=== PATIENT | male | born 1950 | race Caucasian/White ===

== ENCOUNTER → 2016-03-11 | Outpatient (CLI) | payer MEDICARE, BC ==
[~2016-03-11] VITALS: Ht 177.8 cm; Wt 111.4 kg
[~2016-03-11] MED LIST: ALEVE 220MG220 MG PO; ASPIRIN E.C. 8181 MG PO; COZAAR100 MG PO; IBU800 M1 PO; MULTIPLE VITAMI1 CAP PO; NORCO 325 MG-7.1 TAB PO; TYLENOL 8 HR PO; VITAMIN B COMPL1 TA1 PO; VITAMIN C500 MG PO
[2016-03-11 15:30] VITALS: BP 144/76; PULSE 102
== END ==
LOC: COL.RAD 12:33
DX: J90 Pleural effusion, not elsewhere classified (principal); J98.11 Atelectasis; R06.09 Other forms of dyspnea; J94.2 Hemothorax; W55.19XA Other contact with horse, initial encounter
CPT/HCPCS: Q9967

== ENCOUNTER → 2020-09-25 | Outpatient (CLI) | payer MEDICARE, BC ==
[~2020-09-25] MED LIST changes: +EFFEXOR-XR150 MG PO; +GLUCOPHAGE500 MG/TAB PO; +MICARDIS80 MG PO
--- NOTE | 2020-09-25 09:38 | NUR ---
pt was cancelled due to drinking caffeine. dr simpson was notified anushka
== END ==
LOC: COL.CARD 04:52
DX: R06.00 Dyspnea, unspecified (principal); Z53.8 Procedure and treatment not carried out for other reasons

== ENCOUNTER → 2020-09-28 | Outpatient (CLI) | payer MEDICARE, BC | LOC: COL.VAS 11:33 | DX: I51.7 Cardiomegaly (principal); I35.8 Other nonrheumatic aortic valve disorders ==

== ENCOUNTER → 2020-10-03 | Outpatient (CLI) | payer MEDICARE, BC ==
[~2020-10-03] VITALS: Ht 177.8 cm; Wt 112.3 kg
[2020-10-03 06:43] VITALS: BP 156/84; PULSE 69
[2020-10-03 07:58] VITALS: BP 161/80; PULSE 75
[2020-10-03 07:59] VITALS: BP 164/76; PULSE 90
[2020-10-03 08:00] VITALS: BP 148/78; PULSE 86
[2020-10-03 08:01] VITALS: BP 150/83; PULSE 86
== END ==
LOC: COL.CARD 06:21
DX: R06.00 Dyspnea, unspecified (principal)
CPT/HCPCS: A9500; J2785

== ENCOUNTER 2021-05-29 16:31 | Inpatient (IN) | payer MEDICARE, BC ==
[~2021-05-29] VITALS: Ht 177.8 cm; Wt 95.7 kg
[2021-05-29 17:20] LABS: ALANINE AMINOTRANSFERASE 9 U/L (0-55); ALBUMIN 3.1 gm/dL (3.4-4.8); ALKALINE PHOSPHATASE 98 U/L (40-150); ANION GAP 13 mmol/L (7-16); AST,SGOT 8 U/L (5-34); BILIRUBIN,TOTAL 0.6 mg/dL (0.2-1.2); BLOOD UREA NITROGEN 12 mg/dL (8-26); CALCIUM 8.1 mg/dL (8.4-10.2); CARBON DIOXIDE 17 mmol/L (23-31); CHLORIDE 104 mmol/L (98-107); CREATINE KINASE 340 U/L (30-200); CREATININE, serum 0.86 mg/dL (0.72-1.25); GLUCOSE 233 mg/dL (70-99); MAGNESIUM 1.7 mg/dL (1.6-2.6); PHOSPHOROUS 4.1 mg/dL (2.3-4.7); POTASSIUM 4.5 mmol/L (3.5-4.5); SODIUM 134 mmol/L (136-145)
[2021-05-29 17:27] LABS: TROPONIN-I < 0.010 ng/mL (0.00-0.033)
[2021-05-29 18:49] LABS: COLLECTION METHOD CLEAN CATCH
[2021-05-29 18:50] LABS: MEAN CELL VOLUME 89 fl (80.0-100.0); MEAN CORPUSCULAR HGB CONC 35 g/dl (33.0-37.0); MEAN PLATELET VOLUME 13.2 fl (7.4-10.4); RED BLOOD COUNT 2.52 M/mm3 (4.20-5.60); REDCELL DISTRIBUTION WIDTH-CV 13.8 % (11.5-14.5)
[2021-05-29 18:54] LABS: HEMATOCRIT 22.3 % (42.0-52.0); HEMOGLOBIN 7.9 g/dl (13.5-18.0); MEAN CORPUSCULAR HEMOGLOBIN 31 pg (27-31); PLATELET COUNT 17 K/mm3 (130-400)
[2021-05-29 18:55] LABS: MUCOUS Present (NOT PRESENT); PH 5 (5-8); SQUAMOUS EPITHELIAL None Seen /hpf (0-10); URINE APPEARANCE Clear (CLEAR/HAZY); URINE BACTERIA None Seen /hpf (NONE SEEN); URINE BILIRUBIN Negative (NEGATIVE); URINE BLOOD Negative (NEGATIVE); URINE COLOR Straw (YELLOW); URINE GLUCOSE 1+ (NEGATIVE); URINE KETONE Negative (NEGATIVE); URINE LEUKOCYTE ESTERASE Negative (NEGATIVE); URINE NITRATE Negative (NEGATIVE); URINE PROTEIN(semi-quant) Negative (NEGATIVE); URINE RBC None Seen /hpf (0-2); URINE UROBILINOGEN Negative (NEGATIVE)
[2021-05-29 20:39] LABS: BAND 14 % (0-10); EOSINOPHIL 8 % (0-4); LYMPHOCYTE 52 % (20.0-51.0); NEUTROPHILS 22 % (42.0-75.2); OVALOCYTES 1+; PLATELET ESTIMATE DECREASED (NORMAL)
[2021-05-29 22:27] VITALS: BP 136/80; PULSE 117; TEMP 98.1
--- NOTE | 2021-05-29 23:04 | NUR ---
Pt transferrred up from ED at 2200. Pt had incontinent void in bed. Alert and oriented x4. Reports right shoulder pain. Pt is a poor historian, cannot report what medications he takes at home or when he last had chemo. States his DPOA is his niece Bren. Scattered bruising noted down the left arm. Medium sized purple and black bruise on left chest. Red abraison noted on left lower abdomen. Pt's HR remains tachycardic and he appears sob at rest. HR currently running in the upper 120's. On room air satting in the upper 90's. BP 136/80. FSBS 154. Pt states he lives at home alone and has had multiple recent falls. States he uses no assistive devices at home. Vancomycin IV started. IV noted in RAC. Oriented pt to room. Bed alarm on and bed low and locked. Reminded Pt to call before getting OOB. Pt reports no concerns at this time. Will continue to monitor.
[2021-05-29] MEDS ORDERED: GLUCOTROL 5M5 MG/TAB PO (23:21)
[2021-05-29] MEDS ORDERED: K-TAB20 PO (23:21)
[2021-05-29] MEDS ORDERED: FLOMAX 0.40.4 MG/CAP PO (23:21)
[2021-05-29] MEDS ORDERED: KEPPRA 500MG500 MG PO (23:21)
[2021-05-29 23:51] VITALS: BP 121/65; PULSE 115; TEMP 99.4
[2021-05-30] VITALS (10 sets, daily range): BP systolic 112–135; BP diastolic 51–77; PULSE 94–119; TEMP 98.1–100.1
--- NOTE | 2021-05-30 01:26 | NUR ---
TX GIVEN VIA MASK, PT VERY SLEEPY DURING TX, TOLERATED WELL. PT STATES THAT HE HAS NOT USED A CPAP/BIPAP IN "MONTHS, WHENEVER THEY WERE RECALLED" WHEN ASKED HOW LONG IT'S BEEN SINCE HE USED ONE. PT IS A POOR HISTORIAN AND CAN NOT GIVE ANY HOME CPAP SETTINGS. CPAP/BIPAP ORDER DOES NOT INCLUDE SETTINGS AND NO HOME SETTINGS TO USE. PT SLEEPING WELL WHEN I ARRIVED AND SPO2 96% ON ROOM AIR. WILL CONTINUE TO MONITOR O2 SATS AND SUPPLY CPAP/BIPAP IF NEEDED.
--- NOTE | 2021-05-30 02:28 | NUR ---
Pt tolerating Plt transfusion well. SCD's applied to pt's legs. Noted more scattered bruising and small abraisans on BLE.
--- NOTE | 2021-05-30 05:00 | NUR ---
70 yo male with a recent diagnosis of possible primary brain cancer on oral chemotherapy is admitted for further care and management of possible sepsis in the setting of pancytopenia. ht 177.8 cm wt 100 kg SCr 0.86 with estimated CrCl >60 ml/min half life 13.1 hours Plan: Will give an initial loading dose of vancomycin 2000 mg x1 (20 mg/kg); followed by a maintenance regimen of vancomycin 1250 mg q12h to target a goal trough of 15-20 mcg/ml. Will follow patient's renal function, micro data, and vancomycin levels as indicated to assess for any necessary changes to regimen. Thank you for this dosing consult.
--- NOTE | 2021-05-30 05:01 | NUR ---
Pt had an uneventful night. Remains alert and oriented. Pt is slow to respond or slow to do movements. Takes him a minute to process a question. Has had 2 large incontinent voids. Reports he is "unable to tell" when he voids or has to void. SCD's remain on. Bed is low and in locked position with bed alarm on. Seizure, fall, and neutropenic precautions in place. Lactated ringers running at 100 ml/hr. Pt tolerating well. Asleep currently, denies pain. HR is still tachycardic, lower 100's now. Vital signs remain stable. Temperatures have remained stable. Temp was 100.1 at 0023, but has remained in the 98's since administering prn Tylenol. No new bruising noted. Will continue to monitor. No new concerns at this time.
--- NOTE | 2021-05-30 06:27 | NUR ---
Called to notify Dr. Kauffman of consult with patient. Dr. Kauffman did not answer. Left message and will notify day shift that the provider was notified.
--- NOTE | 2021-05-30 09:38 | NUR ---
Patient sees Dr. Xavier for oncology through [facility] in [place]. Left voicemail with Dr. Xavier's nurse Charito to verify chemotherapy. Primary nurse aware.
[2021-05-30 09:40] LABS: MEAN CELL VOLUME 89 fl (80.0-100.0); MEAN CORPUSCULAR HGB CONC 35 g/dl (33.0-37.0); MEAN PLATELET VOLUME 11.5 fl (7.4-10.4); RED BLOOD COUNT 2.39 M/mm3 (4.20-5.60); REDCELL DISTRIBUTION WIDTH-CV 14.3 % (11.5-14.5)
[2021-05-30 09:42] LABS: HEMATOCRIT 21.3 % (42.0-52.0); HEMOGLOBIN 7.4 g/dl (13.5-18.0); MEAN CORPUSCULAR HEMOGLOBIN 31 pg (27-31)
[2021-05-30 09:44] LABS: PLATELET COUNT 27 K/mm3 (130-400)
[2021-05-30 09:55] LABS: CALCIUM 8.2 mg/dL (8.4-10.2); CREATININE, serum 0.67 mg/dL (0.72-1.25)
--- NOTE | 2021-05-30 09:55 | NUR ---
Critical labs called to GISELE Cooper who read back the results.
[2021-05-30 10:01] LABS: BAND 16 % (0-10); EOSINOPHIL 2 % (0-4); LYMPHOCYTE 46 % (20.0-51.0); NEUTROPHILS 24 % (42.0-75.2); NUCLEATED RED BLOOD CELL 1 (0-6); PLATELET ESTIMATE DECREASED (NORMAL)
[2021-05-30 10:02] LABS: OVALOCYTES 1+
--- NOTE | 2021-05-30 10:03 | NUR ---
Shift assessment performed. Scheduled medicaitons given by a Student Nurse, under the supervision of a licensed professional. Generalized bruising noted. Abrasion noted on left knee and right hip. Patient alert to person and time, but not place. Right arm noted to be weak. Patient incontinent, jhonny care performed. Sacral region and groin intact. Patient states that he is experiencing aching shoulder pain and a headache rated a 5/10. VSS. Patient denies any other pain, discomfort, SOA, or further needs at this time. Call light in reach. Seizure percautions in place.
--- NOTE | 2021-05-30 10:57 | NUR ---
GUADALUPE and GUADALUPE student met with the patient to discuss discharge plan. The patient lives alone in [place]. He states that he has good neighbor support that checks in on him. His neighbor, Riky Underwood (ph#[phone]), frequently checks in on him and takes him to his doctor appointments. He reports independence with ADLs and has a cane and walker. He states that he has home health services from an agency called [facility], but that they do not do much for him. The patient's PCP is Dr. Eric Mehta and he receives his medications from [facility]. The patient does not have a DPOA-HC in EMR, but he states that he does have one completed and that he designated his niece, Bren Coronel. He states he is unsure where a copy of the form would be. He states that he is not , does not have any children, and his parents are . He states that he has one sibling: Haile Anderson that lives in [place]. He states that he does not keep in contact with him. Per the patient's H&P, the patient has been having multiple falls at home and his neighbor has been finding him down. GUADALUPE discussed post-acute rehab upon discharge. The patient is interested in rehab and to sending referrals to local SNFs. He states that he [facility] at [facility] [place] for a skilled stay and got out of there a few weeks ago. GUADALUPE attempted to contact JANUARY Andersoncrane chaser, at [facility] to inquire about the DPOA-HC and verify what home health agency he is using. GUADALUPE left her a voicemail. GUADALUPE attempted to contact the patient's niece, Bren, to review discharge plan and inquire about the DPOA-HC. The number we had on file was disconnected. GUADALUPE contacted the patient's neighbor, Riky, and he provided GUADALUPE with Bren's phone number [phone]. Riky confirmed that he has been finding the patient down a lot at home. He would like to keep updated on what facility the patient goes to. GUADALUPE contacted Bren to review the above. Bren is open to rehab for the patient. She states that she is unsure how many more skilled days the patient has left, due to already being in a facility. GUADALUPE inquired if the patient has applied for Medicaid. Bren states that the patient has not applied for Medicaid, due to not needing to and him owning cars and his home. She states that the patient has enough money to private pay at a facility for awhile, if his skilled days are out and to spin down his money. Bren states she is looking for her copy of the DPOA-HC. She states that they completed the form at [facility] and they may have a copy. GUADALUPE contacted [facility] Medical Records and requested a copy. The assistant import manager states that they do have one on file and will fax it to the medical unit. GUADALUPE to contact and fax referrals to [facility], [facility], [facility], [facility], and [facility]. Will await screens. *Discharge plan: SNF. Awaiting acceptance*
--- NOTE | 2021-05-30 11:16 | NUR ---
SW received the patient's DPOA-HC, via fax. SW placed the document in the patient's chart. The patient's DPOA-HC is his niece, Bren Coronel.
--- NOTE | 2021-05-30 13:55 | NUR ---
SW student sent a SNF referral to [facility], [facility], [facility], [facility], and [facility].
--- NOTE | 2021-05-30 14:38 | NUR ---
Sun, at [facility], reports that they have declined the patient.
[2021-05-30] MEDS ORDERED: VITAMIN D31000 IU PO (15:21)
[2021-05-30] MEDS ORDERED: MIRALAX PA17 GM/Dose PO (15:21)
[2021-05-30] MEDS ORDERED: NORCO 325 MG-51 TAB PO (15:22)
[2021-05-30] MEDS ORDERED: ANTI-DIARRHEAL2 MG PO (15:23)
[2021-05-30] MEDS ORDERED: ZOFRAN ODT4 MG PO (15:23)
[2021-05-30] MEDS ORDERED: TYLENOL 500MG500 MG PO (15:24)
--- NOTE | 2021-05-30 19:09 | NUR ---
Patient has had an ok day. New IV started in right hand. Fluids running as ordered. Patient up and to the chair with the assistance of PT. Has stated that he has a headache, but denies the need for interventions at this time. VSS. Patient A&O. Patient denies any further pain, discomfort, SOA, or further needs at this time. Call light in reach. Fall and Seizure percautions in place.
--- NOTE | 2021-05-30 21:44 | NUR ---
Pt alert and oriented upon entry. Resting quietly in bed. Dr. Kauffman came in and visited pt at bedside. Pt appears to be slow to responding. It takes the pt a minute to process a conversation and answer. Pt is also slow to move. Significant weakness noted in the left arm compared to the right arm. Pt can lift and hold right arm. Pt can lift the left arm slightly off the bed, but cannot hold it up for longer than a few seconds. BLE movement is also weak/slow but pt is able to lift and hold legs and stand. Pt denies any pain. Shift assessment performed. Abdomen soft, but pt is refusing to eat tonight. . Scattered bruising along the left arm and on BLE. 2 abraisons noted on left side. Medium to large abraisons noted under left axillae and on left lower abdomen. Axillae is covered with foam dressing and abdomen is open to air. Vitals signs stable. Pt HR continues to be NSR/Sinus tach. HR 97 currently. Pt appears less SOB at rest this evening. RR is 18. Breath sounds are clear with a small amount of expiratory wheezing noted. Pt satting in high 90's on room air. Urine output is good, though pt forgets to call out and attempts to get up. Educated pt and reminded him to utilize the call hays before getting OOB. Blood sugar was 117. Medications administered and education provided. Pt reports no concerns at this time. Will continue to monitor.
[2021-05-31 00:07] VITALS: BP 121/72; PULSE 105; TEMP 97.6
[2021-05-31 04:20] VITALS: BP 122/66; PULSE 99; TEMP 98.3
--- NOTE | 2021-05-31 04:33 | NUR ---
Pt had an uneventful night. Currently resting, asleep. Had 1 BM on BSC overnight and multiple incontinent voids in brief. Remains continent/incontinent and still continues to forget to call out when wanting to use bathroom. Educated pt on utilizing the call hays. LR continues at 100 ml/hr. Lungs sounds clear. No new LE edema noted. Medications administered overnight and education provided. Pt reports some shoulder discomfort. Repositioned pt to relieve pain. Vital signs stable. Pt has been afebrile overnight. Blood sugar at 2020 was 117. Pt reports no questions at this time. Will continue to monitor. No new concerns noted.
[2021-05-31 06:14] LABS: MEAN CELL VOLUME 89 fl (80.0-100.0); MEAN CORPUSCULAR HGB CONC 35 g/dl (33.0-37.0); MEAN PLATELET VOLUME 11.4 fl (7.4-10.4); RED BLOOD COUNT 2.29 M/mm3 (4.20-5.60); REDCELL DISTRIBUTION WIDTH-CV 14.4 % (11.5-14.5)
[2021-05-31 06:28] LABS: HEMATOCRIT 20.4 % (42.0-52.0); HEMOGLOBIN 7.2 g/dl (13.5-18.0); MEAN CORPUSCULAR HEMOGLOBIN 31 pg (27-31)
[2021-05-31 06:29] LABS: PLATELET COUNT 32 K/mm3 (130-400)
[2021-05-31 06:40] LABS: CALCIUM 8.1 mg/dL (8.4-10.2); CREATININE, serum 0.66 mg/dL (0.72-1.25); POTASSIUM 3.8 mmol/L (3.5-4.5)
[2021-05-31 07:10] LABS: BAND 18 % (0-10); EOSINOPHIL 1 % (0-4); LYMPHOCYTE 31 % (20.0-51.0); METAMYELOCYTE 1 % (0-0); NEUTROPHILS 33 % (42.0-75.2); PLATELET ESTIMATE DECREASED (NORMAL)
[2021-05-31 07:11] LABS: OVALOCYTES 1+
[2021-05-31 07:17] VITALS: BP 111/69; PULSE 103; TEMP 97.3
--- NOTE | 2021-05-31 07:20 | NUR ---
Critical labs called to GISELE Mcdaniel who read back the results.
[2021-05-31 11:12] VITALS: BP 105/58; PULSE 105; TEMP 98.1
--- NOTE | 2021-05-31 13:52 | NUR ---
Primary nurse was assisted with [id number] patient care with [facility] [employer] student Kim Guzman and [employer] instructor Saranya Galo MSN, RN.
--- NOTE | 2021-05-31 14:18 | NUR ---
GUADALUPE received a voicemail from the patient's niece, Bren, asking for SW to contact her. GUADALUPE contacted Bren. Bren states Huong at [facility] reached out to her. Bren states that Huong states that the patient does not have many or no skilled days left. She states that she is open to going to [facility] and he would be able to private pay, but she is hoping that a closer facility, like one in [place] can accept the patient instead. GUADALUPE faxed updates to [facility], [facility], [facility], and [facility] and inquired if they are able to accept. Jaxon, at [facility], states that the patient is on a chemo pill and Granix, which are very expensive. He is trying to figure out costs. Huong, at [facility], states that the patient does not have any or many skilled days left, so they then would be looking into long-term care. She states that they would be able to accept the patient though, but may not be able to take him until next Thursday. She provided that Bren had informed her that the patient has a prognosis of 14-18 months left. GUADALUPE notified the hospitalist and asked for a palliative care consult. SW to continue to follow. *Discharge plan: SNF or LTC. Awaiting to hear back from the local facilities*
[2021-05-31 15:14] VITALS: BP 147/71; PULSE 99; TEMP 98.5
[2021-05-31 19:17] VITALS: BP 104/49; PULSE 117; TEMP 97.6
[2021-06-01] VITALS (7 sets, daily range): BP systolic 112–136; BP diastolic 57–80; PULSE 53–110; TEMP 97.3–98.4
--- NOTE | 2021-06-01 01:25 | NUR ---
Pt alert and oriented this evening. Resting quietly in bed. Calm and cooperative. Denies acute pain. Shift assessment performed. Medications administered and education provided. Pt has had an incontinent void this evening. Appears to be continent during the day and incontinent at night. Bruising is still present on the left side. Bruising is on the left chest, left arm, and the pt came in with 2 abrasions on the left axillae and left lower abdomen. Continuing with antibiotics this evening and LR running at 100 ml/hr. Vital signs are stable. Afebrile. HR is in the 90's. No seizure-like activity has been noted. Pt is wearing SCD's. Bed is locked and in low position. Educated pt to utilize the call hays. Pt reports no questions. Will continue to monitor, no concerns at this time.
--- NOTE | 2021-06-01 05:55 | NUR ---
No adverse events overnight. Continued with Q4 neuro checks. Pt has slept all night, but is alert and oriented when awake. Continuing on LR, no new edema noted and lungs sound clear. Significant weakness noted in the left>right arm still. Continued on antibiotics overnight. Had multiple incontinent voids. Encouraged pt to turn throughout night. Pt reports no concerns at this time. Will continue to monitor.
--- NOTE | 2021-06-01 09:15 | NUR ---
PT ASLEEP UPON ENTRY, PLEASANT, AOX4, DENIES PAIN, IV SITE TO RH CDI, ASSESSMENT PERFORMED, PT EDUCATED ON MEDICATIONS, PT HAVING L SIDED WEAKNESS, NO OTHER NEEDS
--- NOTE | 2021-06-01 18:10 | NUR ---
UNEVENTFUL SHIFT, PT UP TO CHAIR FOR LUNCH, PT BACK IN BED AT THIS TIME, IV FLUIDS INFUSING, PT DENIES PAIN, L SIDE WEAK, NO OTHER NEED
[2021-06-02] VITALS (12 sets, daily range): BP systolic 106–136; BP diastolic 47–76; PULSE 57–108; TEMP 97.7–99
--- NOTE | 2021-06-02 05:07 | NUR ---
JANUARY JONES ABLE TO PLACE AN IV IN PATIENTS LEFT AC SO ANESTHESIA DID NOT HAVE TO BE CALLED IN. PATIENT CALM AND COOPERATIVE THROUGHOUT THE NIGHT. NO NEW ISSUES NOTED OR REPORTED BY PATIENT.
[2021-06-02 07:10] LABS: MEAN CELL VOLUME 92 fl (80.0-100.0); MEAN CORPUSCULAR HGB CONC 34 g/dl (33.0-37.0); MEAN PLATELET VOLUME 13.6 fl (7.4-10.4); RED BLOOD COUNT 2.11 M/mm3 (4.20-5.60); REDCELL DISTRIBUTION WIDTH-CV 14.3 % (11.5-14.5)
[2021-06-02 07:16] LABS: CALCIUM 7.9 mg/dL (8.4-10.2); CREATININE, serum 0.68 mg/dL (0.72-1.25); POTASSIUM 3.6 mmol/L (3.5-4.5)
[2021-06-02 07:22] LABS: HEMATOCRIT 19.5 % (42.0-52.0); HEMOGLOBIN 6.6 g/dl (13.5-18.0); MEAN CORPUSCULAR HEMOGLOBIN 31 pg (27-31)
[2021-06-02 07:23] LABS: PLATELET COUNT 25 K/mm3 (130-400)
--- NOTE | 2021-06-02 07:50 | NUR ---
PATIENT RESTING COMFORTABLY IN BED. NO C/O PAIN, NO REQUESTS AT THIS TIME.
--- NOTE | 2021-06-02 07:53 | NUR ---
CRITICAL HEMOGLOBIN AND PLATELET REPORTED TO DR. BERGERON. NEED FOR CENTRAL LINE ALSO EXPRESSED. NO NEW ORDERS AT THIS TIME
[2021-06-02 09:33] LABS: BAND 3 % (0-10); LYMPHOCYTE 35 % (20.0-51.0); NEUTROPHILS 56 % (42.0-75.2); PLATELET ESTIMATE DECREASED (NORMAL)
--- NOTE | 2021-06-02 11:07 | NUR ---
PATIENT UP WITH THERAPY FROM BED TO CHAIR. NEW IV PLACED IN RIGHT WRIST FOR BLOOD ADMINISTRATION. LUNG SOUNDS COARSE CRACKLES AND WHEEZES. EDEMATOUS B/L LE. HANDS AND LOWER UPPER EXTREMITIES +2 EDMEA. DIFFICULTY WITH MOVEMENT IN UPPER EXTREMITIES. PLEASANT, QUIET. NO COMPLAINTS OF PAIN. C/O OF SOB, RESPIRATIONS EVELVATED. AWAITING BLOOD BANK.
--- NOTE | 2021-06-02 12:59 | NUR ---
PATIENT LPRBC STARTED AT 1257, REVIEWED REACTION SYMPTOMS WITH PATIENT. CRACKLES PRESENT IN LUNGS ON MORNING ASSESSMENT, DIFFICULTY BREATHING NOTED BEFORE ADMISSION. SOB, ACCESSORY BREATHING ON OCCSION ALL PRE-BLOOD ADMISSION BASELINE. REMAINED AT PATIENT BEDSIDE FOR FIRST 20MIN.
--- NOTE | 2021-06-02 16:24 | NUR ---
PATIENT COMPLETED TRANSFUSION, WITH NO S/S OF REACTION. CRACKLES STILL NOTED IN B/L BASES. STILL C/O SOB. REPOSITIONED IN BED. A&O, NO C/O PAIN. SPOKE WITH PROVIDER REGUARDING LASIX FOR FLUID STATUS. WILL CONTINUE TO MONITOR.
--- NOTE | 2021-06-02 17:12 | NUR ---
PATIENT STABLE AFTER RECEIVING 1 UNIT OF LPRBC. 40MG PO LASIX STARTED AT 1615 TODAY FOR FLUID OVERLOAD. SITTING UP RIGHT IN BED EATING DINNER. NO COMPLAINTS OF PAIN. NO INSULIN COVERAGE NEEDED TODAY. SOME SLIGHT FORGETFULNESS NOTED TODAY. OTHERWISE NO SIGNIFICANT EVENTS THIS SHIFT.
[2021-06-03] VITALS (7 sets, daily range): BP systolic 100–147; BP diastolic 55–73; PULSE 91–104; TEMP 98.1–98.9
--- NOTE | 2021-06-03 04:49 | NUR ---
NO NEW ISSUES NOTED OR REPORTED BY PATIENT THROUGHOUT THE NIGHT. PATIENT RESTED QUIETLY IN BED THROUGHOUT MOST OF THE NIGHT. REPOSITIONED HIM SEVERAL TIMES.
[2021-06-03 06:33] LABS: MEAN CELL VOLUME 89 fl (80.0-100.0); MEAN CORPUSCULAR HGB CONC 34 g/dl (33.0-37.0); MEAN PLATELET VOLUME 12.7 fl (7.4-10.4); RED BLOOD COUNT 2.48 M/mm3 (4.20-5.60); REDCELL DISTRIBUTION WIDTH-CV 15.4 % (11.5-14.5)
[2021-06-03 06:44] LABS: HEMOGLOBIN 7.5 g/dl (13.5-18.0); MEAN CORPUSCULAR HEMOGLOBIN 30 pg (27-31)
[2021-06-03 06:45] LABS: PLATELET COUNT 24 K/mm3 (130-400)
[2021-06-03 06:46] LABS: CALCIUM 7.7 mg/dL (8.4-10.2); CREATININE, serum 0.67 mg/dL (0.72-1.25); POTASSIUM 3.3 mmol/L (3.5-4.5)
[2021-06-03 07:53] LABS: ANISOCYTOSIS 1+; BAND 12 % (0-10); BASOPHIL 1 % (0-2); EOSINOPHIL 2 % (0-4); LYMPHOCYTE 32 % (20.0-51.0); NUCLEATED RED BLOOD CELL 1 (0-6); PLATELET ESTIMATE DECREASED (NORMAL)
[2021-06-03 07:54] LABS: NEUTROPHILS 44 % (42.0-75.2)
[2021-06-03] MEDS ORDERED: KEPPRA 500MG500 MG PO (09:24)
[2021-06-03] MEDS ORDERED: TYLENOL 500MG500 MG PO (09:24)
[2021-06-03] MEDS ORDERED: FLOMAX 0.40.4 MG/CAP PO (09:24)
[2021-06-03] MEDS ORDERED: GLUCOTROL 5M5 MG/TAB PO (09:25)
[2021-06-03] MEDS ORDERED: VITAMIN D31000 IU PO (09:25)
--- NOTE | 2021-06-03 10:53 | NUR ---
GUADALUPE received a call from GUADALUPE Borja at [facility], regarding the patient. GUADALUPE asked if [facility] was able to take the patient this week, and Huong confirmed that they could take the patient on Thursday if needed. She voiced concern for Bren, his neice, who she had previously talked to in regards to the patient's placement. Bren had voiced that she would prefer the patient to be placed in [place], yet GUADALUPE has not had confirmation from [facility] or [facility]. Huong stated that the patient would have to pay privately for the care at [facility] because he is out of skilled days, but his neice, Bren, knows this and affirms he has the money to pay for this if needed. GUADALUPE Haider, will call Huong back this afternoon.
--- NOTE | 2021-06-03 15:05 | NUR ---
Social Work student faxed updates to [employer].
--- NOTE | 2021-06-03 16:41 | NUR ---
fiber optic assembly worker and SW student meet with patient to discuss his golas of care. When asked what his goals were, the patient replies " that i could go back in time and non of this would have happened". I empathized with the patient and asked if he would like to pursue aggressive measures towards his treatment or focus more on comfort the patient replied with that he would like to focus on "comfort". I addressed him being a full code status and what that would look like if his heart was to stop. Patient verbalizes that he would like chest compressions and to be intubated. Unsure if the patient fully understood. Patient appears to be fidgety and restless during interaction with excessive belly breathing. Per nursing he is taking in less orally and frequently chokes on liquids. Informed the patient that i would let him rest and think about it tonight and that we would touch base again tomorrow. BANDAR/Charley Moya contacted. She states that she is flying in tomorrow and should arrivein [place] around [id number]. Bren asks if the patient will be discharged by then. I informed her that at this time the only accepting facility that we have is [facility] and that they would not be able to take the patient until mid week. Informed Bren that i spoke with Noemí at [facility] who informed me that the patient is out of skilled days and that he would be private pay. Also informed her that the facilities in [facility] are not able to accept the patient unless he was on hospice. Bren verbalizes her understanding and at this time is leaning more towards hospice but would like to be here and speak with the patient about it in person.
--- NOTE | 2021-06-03 17:13 | NUR ---
PATIENT RESTING IN CHAIR, S/P EEG. NO C/O PAIN. EDEMA PRESENT IN B/L UPPER AND LOWER EXTREMITIES. BELLY BREATHING. C/O SHORTNESS OF BREATH. ALERT, ORIENTED. PLAN TO DISCHARGE TO SNF TODAY. RECOMMENDED TO SW TO CONSIDER CONSULT TO PALLIATIVE/HOSPICE. DISCUSSED WITH PATIENT REGUARDING CODE STATUS. ADAMANT ABOUT REMAINING FULL CODE. PATIENT HAD DIFFICULTY WITH SWALLOWING MORNING MEDS, HAD MOMENT OF CHOKING, SPEECH CONSULTED. RAYMUNDO EPISODE WHILE AUTHOR BEDSIDE, DURING SWAWLLOWING EPISODE. PATIENT RECOVERED QUICKLY. WILL CONTINUE TO MONITOR.
--- NOTE | 2021-06-03 18:32 | NUR ---
PATIENT RESTING IN BED. C/O DIFFICULTY BREATHING OCCASSIONALLY THROUGHOUT THE DAY. WORKED WITH THERAPY, EEG THIS AM. NO CRITICAL EVENTS TO REPORT. PLANS TO DC TO SNF THIS WEEK.
[2021-06-04 03:32] VITALS: BP 131/65; PULSE 95; TEMP 98.1
[2021-06-04 06:12] LABS: MEAN CELL VOLUME 87 fl (80.0-100.0); MEAN CORPUSCULAR HGB CONC 36 g/dl (33.0-37.0); MEAN PLATELET VOLUME 12.4 fl (7.4-10.4); REDCELL DISTRIBUTION WIDTH-CV 14.9 % (11.5-14.5)
[2021-06-04 06:13] LABS: HEMATOCRIT 22.6 % (42.0-52.0); HEMOGLOBIN 8.1 g/dl (13.5-18.0); MEAN CORPUSCULAR HEMOGLOBIN 31 pg (27-31)
[2021-06-04 06:15] LABS: PLATELET COUNT 24 K/mm3 (130-400)
[2021-06-04 06:27] LABS: CALCIUM 7.8 mg/dL (8.4-10.2); CREATININE, serum 0.64 mg/dL (0.72-1.25); POTASSIUM 3.4 mmol/L (3.5-4.5)
[2021-06-04 07:06] LABS: BAND 7 % (0-10); LYMPHOCYTE 27 % (20.0-51.0); METAMYELOCYTE 1 % (0-0); NEUTROPHILS 65 % (42.0-75.2)
[2021-06-04 07:07] LABS: HYPOCHROMIA 1+; OVALOCYTES 1+; SCHISTOCYTES 1+
[2021-06-04 07:08] LABS: POLYCHROMASIA 1+; TEAR DROP CELLS 1+
[2021-06-04 07:26] VITALS: BP 118/71; PULSE 89; TEMP 98.4
[2021-06-04 11:39] VITALS: BP 121/71; PULSE 94; TEMP 98.4
[2021-06-04 15:47] VITALS: BP 116/63; PULSE 91; TEMP 98.2
--- NOTE | 2021-06-04 17:15 | NUR ---
THIS RN HAD A CONVERSATION REGARDING PALLIATIVE/HOSPICE WITH THE PATIENT AND HIS DPOA: KERVIN. THE PATIENT WAS ASKING "WHAT WOULD YOU SUGGEST" AND "WHAT WOULD YOU DO?" THIS RN STATED "THAT IS COMPLETELY UP TO HIM WHAT HE WANTS TO DO." THE PATIENT DID STATE AT ONE POINT "I WANT TO KEEP GETTING MY MEDICATIONS AND LIVE LIFE LONG I CAN." THIS RN STATED "IT IS REALLY UP TO HIM ON HOW HE WANTS TO LIVE HIS LIFE. QUALITY VS. QUANTITY" THE NIECE STATES THAT SHE HAD BEEN GIVEN A PROGNOSIS FOR HIS DIAGNOSIS AND THAT HE DOES NOT RECALL THE CONVERSATION THAT WAS HAD REGUARDING THIS ISSUE. THE NEICE DID ALSO STATE THAT SHE WILL NOT MAKE DECISIONS BUT ASSIST HER UNCLE BY MAKING SUGGESTIONS. NO OTHER CONCERNS AT THIS TIME. REPORT GIVEN TO JANUARY SAMSON.
[2021-06-04 20:28] VITALS: BP 125/65; PULSE 95; TEMP 98.8
[2021-06-05] VITALS (7 sets, daily range): BP systolic 102–129; BP diastolic 50–92; PULSE 87–102; TEMP 97.4–99
--- NOTE | 2021-06-05 06:05 | NUR ---
UPON ASSESSMENT OF PATIENTS BACK EARLY THIS MORNING A RED RASH WAS NOTED ON THE RIGHT SIDE OF HIS BACK. GISELE SAINI NOTIFIED. SEE NEW ORDERS.
[2021-06-05 06:23] LABS: HEMATOCRIT 23.1 % (42.0-52.0); HEMOGLOBIN 8.1 g/dl (13.5-18.0); MEAN CELL VOLUME 87 fl (80.0-100.0); MEAN CORPUSCULAR HEMOGLOBIN 31 pg (27-31); MEAN CORPUSCULAR HGB CONC 35 g/dl (33.0-37.0); MEAN PLATELET VOLUME 11.3 fl (7.4-10.4); RED BLOOD COUNT 2.65 M/mm3 (4.20-5.60); REDCELL DISTRIBUTION WIDTH-CV 14.7 % (11.5-14.5)
[2021-06-05 06:25] LABS: PLATELET COUNT 25 K/mm3 (130-400)
[2021-06-05 06:49] LABS: CREATININE, serum 0.61 mg/dL (0.72-1.25); POTASSIUM 3.8 mmol/L (3.5-4.5)
[2021-06-05 07:18] LABS: BAND 3 % (0-10); EOSINOPHIL 6 % (0-4); LYMPHOCYTE 38 % (20.0-51.0); MICROCYTOSIS 2+; NEUTROPHILS 39 % (42.0-75.2); PLATELET ESTIMATE DECREASED (NORMAL); POLYCHROMASIA 1+
[2021-06-05 07:19] LABS: OVALOCYTES 1+; SCHISTOCYTES 1+
--- NOTE | 2021-06-05 07:34 | NUR ---
PT WOULD NOT TOLERATE THE EFFER-K FOR THE POTASSIUM PROTOCOL. INSTEAD ORDERED 20MEQ TABLET FOR PATIENT PREFERENCE.
--- NOTE | 2021-06-05 10:20 | NUR ---
Call made to [facility]. S/w Dr. Duc Mcneill's nurse. She confirmed patient was last seen in March and had completed his treatment with them but was under the assumption that he had transferred care to [facility]. There had been issues with patient's retirement getting the patient to appointments so the office was trying to coordinate transfer fo care to get better adherance to treatment plan. Patient also received radiation therapy from Dr. Magana. Transferred to Dr. Magana's nurse (#[phone]). S/w Kourtney, jerad confirmed the patient received radiation therapy 05/07 with his last appointment 05/13. Patient is scheduled for a f/u with Dr. Magana 06/14 to determine when re-imaging (MRI) is needed post-treatment.
--- NOTE | 2021-06-05 13:09 | NUR ---
progress worker attended meeting with palliative care RN Asmita, the patient's niece/ DPOA-HC Bren and the patient to discuss goals of care. Patient verbalizs that he would like to continue his cancer treaments. Educated the patient that he is not safe enough to return home. Patient is in agreement to this. Spoke with the patient about termite inspector care facilities and he is in agreement to this. He would like to look at [facility] first. I contacted Sun with [facility]. She does not have any AL, LTC or memory care beds available at this time. Contact made with Jaxon at [facility]. He "might" might have a bed for the patient. I asked Jaxon if he would be able to come up and meet with the patient and Bern today. Jaxon states that he will be here around 3 to meet with the patient and Bren. This SW contacted Karlie Macario in [place]. Bren states that she has financial DPOA paperwork needing to be notarized. Karlie is going to plan on meeting with Bren around 2 to finalize that paperwork.
--- NOTE | 2021-06-05 13:16 | NUR ---
Met with patient, his neice and DPOA Bren, and GUADALUPE Haider. Patient would like to pursue treatment for his cancer at this time. He understands that it is not recommended that he return home and he is agreeable to placement. GUADALUPE Haider making referrals. Bren pulled me aside and is under the assumption that the patient only has 12 months to live based on a conversation with the patient's surgeon but states she doesn't think Bill has heard a prognosis. I told here neither his oncologist or radiation oncologist would give me any prognosis or prospective treatment plan and things are still pending follow-up imaging. Gave Bren a list of hospice agencies to look into and informed her that they can be added at any time in addition to his nursing services that get set up. I also gave her my contact information should questions arise.
--- NOTE | 2021-06-05 19:00 | NUR ---
THE PATIENT HAD AN UNEVENTFUL SHIFT. ASSESSMENT UNCHANGED. THE PATIENT DENIES ANY PAIN ASIDE FROM A SLIGHT HEADACHE. THE PATIENT HAS BEEN DOING VERY WELL WITH EATING TODAY. DISCUSSED EATING WITH SPEECH THERAPY WHO STATES IF HE IS DOING WELL, WE NO LONGER NEED TO KEEP HIM UNDER 100% SUPERVISION WHILE EATING. THE PATIENT HAS DECIDED THAT HE WILL GO TO [facility], AND SOCIAL WORK IS WORKING WITH THE DPOA TO DECIDE WHERE. THERE ARE NO OTHER CONCERNS WITH THIS PATIENT. REPORT HANDED OFF TO JANUARY SAMSON.
--- NOTE | 2021-06-05 23:35 | NUR ---
Pt is alert and oriented this evening, resting in bed. Denies acute pain. Medications administered and education provided. Shift assessment performed. Q4 neuro checks continued. Bruising noted on pt's left axillary area and left lower side. Medium sized and yellow to black colored. 2 smaller abrasions also noted, one on the left axillae and one on the lower left abdomen. Both red, not draining, and open to air. Scattered bruising noted on arms and legs. Pt is alert and awoken to speech, but is a little slow to comprehend. The left and right upper extremities are weak. Left side has greater weakness than the right. Pt can move legs and scootch himself up in the bed as needed. Vital signs are stable. HR is in 80's and NSR. Most recent blood suagr was 150. No insulin required. BP runs in the lower 100-110's systolic, but pt denies lightheadedness or dizziness. Condom catheter noted. Pt appears to be incontinent at night. Calm and cooperative this evening. Encouraged pt to turn. Pt reports no questions at this time. Will continue to monitor, no concerns at this time.
[2021-06-06 04:31] VITALS: BP 77/50; PULSE 94; TEMP 98.3
[2021-06-06 04:53] VITALS: BP 118/76
--- NOTE | 2021-06-06 04:54 | NUR ---
Sat Pt upright and re-took BP manually on the right arm and got 118/76. Pt denies dizziness or lightheadedness and is not SOB. Will continue to monitor.
--- NOTE | 2021-06-06 04:57 | NUR ---
Pt had an uneventful night, no adverse events. Remains alert and oriented when awake. Has rested the majority of the night. Vital signs remain stable. Last BP was 118/76 which was taken manually. BP tends to run softer at night. HR runs from 90's-100's, sinus rythym and sinus tach. Lung sounds are clear. Pt denies acute pain. 300 ml out overnight. Pt reports no questions at this time. No new concerns, will continue to monitor.
[2021-06-06 06:41] LABS: POTASSIUM 3.6 mmol/L (3.5-4.5)
[2021-06-06 08:20] LABS: MEAN CELL VOLUME 90 fl (80.0-100.0); MEAN CORPUSCULAR HGB CONC 34 g/dl (33.0-37.0); MEAN PLATELET VOLUME 13.2 fl (7.4-10.4); RED BLOOD COUNT 2.58 M/mm3 (4.20-5.60); REDCELL DISTRIBUTION WIDTH-CV 14.7 % (11.5-14.5)
[2021-06-06 08:21] LABS: HEMATOCRIT 23.3 % (42.0-52.0); HEMOGLOBIN 7.9 g/dl (13.5-18.0); MEAN CORPUSCULAR HEMOGLOBIN 31 pg (27-31)
[2021-06-06 08:22] LABS: PLATELET COUNT 30 K/mm3 (130-400)
[2021-06-06 08:31] VITALS: BP 127/70; PULSE 76; TEMP 98.2
--- NOTE | 2021-06-06 08:40 | NUR ---
PT SLOW TO RESPOND TO QUESTIONS BUT AOX4, TERI JAQUEZ MADE AWARE, ROSS LIFT OPERATOR EQUAL, UNABLE TO HOLD UP L UPPER EXTREMITY. NO EDEMA NOTED TO BLE BUT EDEMA 1+ TO BUE. MEDICATIONS GIVEN, PT HOLDING WATER IN MOUTH FOR A FEW SECONDS BEFORE SWALLOWING. SOME COUGHING NOTED AFTER SWALLOWING. RASH VISUALIZED ON PT BACK, PT DENIES ITCHINESS. ASSESSMENT PERFORMED, NO OTHER NEEDS
[2021-06-06 08:44] LABS: CREATININE, serum 0.67 mg/dL (0.72-1.25)
[2021-06-06 09:05] LABS: BAND 2 % (0-10); EOSINOPHIL 3 % (0-4); LYMPHOCYTE 23 % (20.0-51.0); NEUTROPHILS 59 % (42.0-75.2); PLATELET ESTIMATE DECREASED (NORMAL)
[2021-06-06] MEDS ORDERED: ZYRTEC 10MG10 MG PO (09:07)
[2021-06-06 12:02] VITALS: BP 103/65; PULSE 88; TEMP 98.1
--- NOTE | 2021-06-06 13:13 | NUR ---
Spoke with Jaxon at [facility] who states they are prepared to accept the patient for an admission today. Patient's clinical updates and and discharge orders faxed to Jaxon. Arrangement made for the patient to be picked up at 1400 today. Patient's niece/DPOA-HC notified and is in agreement to this plan. Patient is presented with the [facility].IM form. Education provided and verbalized his agreement with today's discharge plan. Signed original placed in the patient's chart and copy provided back to the patient. Discharge plan: [facility] today @ 1400
--- NOTE | 2021-06-06 13:48 | NUR ---
attempted to leave report for via donavon magdiel. no answer, left message to call back.
--- NOTE | 2021-06-06 14:26 | NUR ---
REPORT CALLED TO VIA MERI JEREZ
--- NOTE | 2021-06-06 14:50 | NUR ---
PT ESCORTED OUT VIA WHEELCHAIR, NO BELONGINGS OTHER THAN CLOTHES BROUGHT TO HOSPITAL, PT NIECE AT BEDSIDE, NO OTHER NEEDS, PACKET PROVIDED TO VIA [employer]
== END 2021-06-06 14:52 | DRG 183 ==
LOC: COL.ER 16:31 → MEDICAL 20:03
PROVIDERS: Emergency Medicine; Nurse Practitioner Family; Physician Assistant; Student in an Organized Health Care Education/Training Program; ADMIT Internal Medicine
DX: S22.41XA Multiple fractures of ribs, right side, initial encounter for closed fracture (principal); D61.810 Antineoplastic chemotherapy induced pancytopenia; R65.10 Systemic inflammatory response syndrome (SIRS) of non-infectious origin without acute organ dysfunction; E87.1 Hypo-osmolality and hyponatremia; E87.2 Acidosis; C71.9 Malignant neoplasm of brain, unspecified; T45.1X5A Adverse effect of antineoplastic and immunosuppressive drugs, initial encounter; I10 Essential (primary) hypertension; G47.30 Sleep apnea, unspecified; E11.9 Type 2 diabetes mellitus without complications; G40.909 Epilepsy, unspecified, not intractable, without status epilepticus; R41.89 Other symptoms and signs involving cognitive functions and awareness; E66.9 Obesity, unspecified; N40.0 Benign prostatic hyperplasia without lower urinary tract symptoms; I44.1 Atrioventricular block, second degree; R13.10 Dysphagia, unspecified; E87.6 Hypokalemia; R21 Rash and other nonspecific skin eruption; W06.XXXA Fall from bed, initial encounter; Y93.89 Activity, other specified; Y92.003 Bedroom of unspecified non-institutional (private) residence as the place of occurrence of the external cause; Z20.822 Contact with and (suspected) exposure to COVID-19; Z68.30 Body mass index [BMI] 30.0-30.9, adult; Z87.891 Personal history of nicotine dependence; Z79.84 Long term (current) use of oral hypoglycemic drugs; Z79.82 Long term (current) use of aspirin
CPT/HCPCS: 99223-AI; 99232-AI; 99233-AI; 99239; A9284; J0692; J1447; J3370; J3475; J3480; J7050; J7120; P9035; P9040; Q9967

== ENCOUNTER → 2021-06-10 | Outpatient (CLI) | payer MEDICARE, BC ==
[~2021-06-10] MED LIST changes: +ANTI-DIARRHEAL2 MG PO; +FLOMAX 0.40.4 MG/CAP PO; +GLUCOTROL 5M5 MG/TAB PO; +K-TAB20 PO; +KEPPRA 500MG500 MG PO; +MIRALAX PA17 GM/Dose PO; +NORCO 325 MG-51 TAB PO; +TYLENOL 500MG500 MG PO; +VITAMIN D31000 IU PO; +ZOFRAN ODT4 MG PO; +ZYRTEC 10MG10 MG PO
[2021-06-10 14:37] LABS: COLLECTION METHOD CLEAN CATCH
[2021-06-10 14:42] LABS: MUCOUS Present (NOT PRESENT); PH 6 (5-8); SQUAMOUS EPITHELIAL 0-2 /hpf (0-10); URINE APPEARANCE Clear (CLEAR/HAZY); URINE BACTERIA None Seen /hpf (NONE SEEN); URINE BILIRUBIN Negative (NEGATIVE); URINE BLOOD Negative (NEGATIVE); URINE COLOR Yellow (YELLOW); URINE GLUCOSE Negative (NEGATIVE); URINE KETONE 1+ (NEGATIVE); URINE LEUKOCYTE ESTERASE Negative (NEGATIVE); URINE NITRATE Negative (NEGATIVE); URINE PROTEIN(semi-quant) Negative (NEGATIVE); URINE RBC 0-2 /hpf (0-2); URINE UROBILINOGEN >=4.0 (NEGATIVE)
[2021-06-10 14:44] LABS: HEMOGLOBIN 8.5 g/dl (13.5-18.0); MEAN CELL VOLUME 94 fl (80.0-100.0); MEAN CORPUSCULAR HEMOGLOBIN 31 pg (27-31); MEAN CORPUSCULAR HGB CONC 33 g/dl (33.0-37.0); MEAN PLATELET VOLUME 11.7 fl (7.4-10.4); PLATELET COUNT 64 K/mm3 (130-400); RED BLOOD COUNT 2.76 M/mm3 (4.20-5.60); REDCELL DISTRIBUTION WIDTH-CV 17.1 % (11.5-14.5)
[2021-06-10 15:05] LABS: ANISOCYTOSIS 2+; BAND 8 % (0-10); EOSINOPHIL 18 % (0-4); LYMPHOCYTE 38 % (20.0-51.0); NEUTROPHILS 19 % (42.0-75.2); OVALOCYTES 1+
[2021-06-10 15:08] LABS: PLATELET ESTIMATE DECREASED (NORMAL)
== END ==
LOC: ZLAB.STJ 14:26
PROVIDERS: Family Medicine
DX: J09.X2 Influenza due to identified novel influenza A virus with other respiratory manifestations (principal); R33.9 Retention of urine, unspecified

== ENCOUNTER → 2021-06-11 | Outpatient (CLI) | payer MEDICARE, BC | LOC: ZLAB.STJ 10:58 | DX: R21 Rash and other nonspecific skin eruption (principal) ==

== ENCOUNTER → 2021-06-24 | Outpatient (CLI) | payer MEDICARE, BC ==
[2021-06-24 13:38] LABS: HEMATOCRIT 32.3 % (42.0-52.0); HEMOGLOBIN 10.5 g/dl (13.5-18.0); MEAN CELL VOLUME 98 fl (80.0-100.0); MEAN CORPUSCULAR HEMOGLOBIN 32 pg (27-31); MEAN CORPUSCULAR HGB CONC 33 g/dl (33.0-37.0); MEAN PLATELET VOLUME 11.3 fl (7.4-10.4); PLATELET COUNT 148 K/mm3 (130-400); RED BLOOD COUNT 3.29 M/mm3 (4.20-5.60); REDCELL DISTRIBUTION WIDTH-CV 21.1 % (11.5-14.5)
[2021-06-24 13:45] LABS: BAND 2 % (0-10); BASOPHIL 1 % (0-2); EOSINOPHIL 6 % (0-4); LYMPHOCYTE 33 % (20.0-51.0); MYELOCYTE 1 % (0-0); NEUTROPHILS 36 % (42.0-75.2)
[2021-06-24 13:46] LABS: MICROCYTOSIS 1+; PLATELET ESTIMATE NORMAL (NORMAL); POLYCHROMASIA 1+
== END ==
LOC: ZLAB.STJ 13:08
PROVIDERS: Family Medicine
DX: D64.81 Anemia due to antineoplastic chemotherapy (principal)

== ENCOUNTER → 2021-06-26 | Outpatient (CLI) | payer MEDICARE, BC | LOC: ZLAB.STJ 15:42 | DX: Z51.81 Encounter for therapeutic drug level monitoring (principal) ==

== ENCOUNTER → 2021-07-03 | Outpatient (CLI) | payer MEDICARE, BC | LOC: ZLAB.STJ 11:07 | DX: I10 Essential (primary) hypertension (principal) ==

== ENCOUNTER → 2021-07-03 | Outpatient (CLI) | payer MEDICARE, BC ==
[2021-07-03 11:17] LABS: BASO % 0.9 % (0.0-2.0); EOS # 0.3 K/mm3 (0.0-0.7); EOS % 7.2 % (0.0-4.0); GRAN # 1.9 K/mm3 (1.4-6.5); GRAN % 54.3 % (42.2-75.2); HEMATOCRIT 31.5 % (42.0-52.0); HEMOGLOBIN 10.2 g/dl (13.5-18.0); LYMPH # 0.9 K/mm3 (1.2-3.4); LYMPH % 24.4 % (20.0-51.0); MEAN CELL VOLUME 100 fl (80.0-100.0); MEAN CORPUSCULAR HEMOGLOBIN 33 pg (27-31); MEAN CORPUSCULAR HGB CONC 32 g/dl (33.0-37.0); MEAN PLATELET VOLUME 11.4 fl (7.4-10.4); MONO # 0.5 K/mm3 (0.1-0.6); MONO % 12.9 % (1.7-9.3); PLATELET COUNT 150 K/mm3 (130-400); RED BLOOD COUNT 3.14 M/mm3 (4.20-5.60); REDCELL DISTRIBUTION WIDTH-CV 19.2 % (11.5-14.5)
[2021-07-03 11:42] LABS: ALBUMIN 3.1 gm/dL (3.4-4.8); BILIRUBIN,TOTAL 0.5 mg/dL (0.2-1.2); CALCIUM 8.6 mg/dL (8.4-10.2); CREATININE, serum 0.92 mg/dL (0.72-1.25); POTASSIUM 3.2 mmol/L (3.5-4.5); TOTAL PROTEIN 6.1 gm/dL (6.2-8.1)
== END ==
LOC: ZLAB.STJ 11:04
PROVIDERS: Psychiatry & Neurology Neurology
DX: G40.89 Other seizures (principal); I10 Essential (primary) hypertension

== ENCOUNTER → 2021-07-10 | Outpatient (CLI) | payer MEDICARE, BC ==
[2021-07-10 18:03] LABS: BASO % 0.7 % (0.0-2.0); EOS # 0.3 K/mm3 (0.0-0.7); EOS % 6.3 % (0.0-4.0); GRAN # 2.7 K/mm3 (1.4-6.5); GRAN % 62.1 % (42.2-75.2); HEMOGLOBIN 10.5 g/dl (13.5-18.0); LYMPH # 0.9 K/mm3 (1.2-3.4); LYMPH % 20.7 % (20.0-51.0); MEAN CELL VOLUME 102 fl (80.0-100.0); MEAN CORPUSCULAR HEMOGLOBIN 32 pg (27-31); MEAN CORPUSCULAR HGB CONC 32 g/dl (33.0-37.0); MEAN PLATELET VOLUME 11.5 fl (7.4-10.4); MONO # 0.4 K/mm3 (0.1-0.6); MONO % 10.2 % (1.7-9.3); PLATELET COUNT 169 K/mm3 (130-400); RED BLOOD COUNT 3.24 M/mm3 (4.20-5.60)
[2021-07-10 18:04] LABS: HEMATOCRIT 32.9 % (42.0-52.0)
[2021-07-10 18:21] LABS: ALBUMIN 3.4 gm/dL (3.4-4.8); BILIRUBIN,TOTAL 0.4 mg/dL (0.2-1.2); CALCIUM 8.5 mg/dL (8.4-10.2); CREATININE, serum 1.08 mg/dL (0.72-1.25); POTASSIUM 3.7 mmol/L (3.5-4.5); TOTAL PROTEIN 6.1 gm/dL (6.2-8.1)
== END ==
LOC: ZLAB.STJ 16:01
PROVIDERS: Internal Medicine
DX: I10 Essential (primary) hypertension (principal)

== ENCOUNTER → 2021-08-28 | Outpatient (CLI) | payer MEDICARE, BC ==
[~2021-08-28] MED LIST changes: +ATIVAN 1MG T1 MG/TAB PO; +CALAMINE 180 M180 ML TP; +DULCOLAX S10 MG/SUPP RC; +IMODIUM 2MG CAPS2 MG PO; +IPRATROPIUM BROM3 M1 IH; +REGLAN 10MG10 MG/TAB PO; +ROXANOL 20MG20 MG/ML SL; +SYSTANE 0.4%-0.1 SOL OU; +TEMODAR140 MG PO; +THORAZINE 550 MG/TAB PO; +TRANSDERM-0.5 MG/21 TD; +ULTRAM 50MG TAB50 MG PO
== END ==
LOC: ZLAB.STJ 17:14
DX: Z01.89 Encounter for other specified special examinations (principal)

== ENCOUNTER 2021-09-09 18:08 | Emergency (ER) | payer MEDICARE, BC ==
[~2021-09-09] VITALS: Ht 175.3 cm; Wt 90.9 kg
[~2021-09-09 18:08] MED LIST changes: -ATIVAN 1MG T1 MG/TAB PO; -CALAMINE 180 M180 ML TP; -DULCOLAX S10 MG/SUPP RC; -IMODIUM 2MG CAPS2 MG PO; -IPRATROPIUM BROM3 M1 IH; -REGLAN 10MG10 MG/TAB PO; -ROXANOL 20MG20 MG/ML SL; -SYSTANE 0.4%-0.1 SOL OU; -TEMODAR140 MG PO; -THORAZINE 550 MG/TAB PO; -TRANSDERM-0.5 MG/21 TD; -ULTRAM 50MG TAB50 MG PO
[2021-09-09 18:42] VITALS: TEMP 97.6
[2021-09-09 21:30] VITALS: BP 127/75; PULSE 81
== END 2021-09-09 21:31 | disposition home or self-care (01) ==
LOC: COL.ER 18:08
DX: M25.511 Pain in right shoulder (principal); E66.9 Obesity, unspecified; W01.0XXA Fall on same level from slipping, tripping and stumbling without subsequent striking against object, initial encounter

== ENCOUNTER → 2021-09-09 | Outpatient (CLI) | payer MEDICARE, BC | LOC: COL.ER 11:44 → EDSTATUS 11:48 → COL.RAD 11:50 | DX: S49.92XA Unspecified injury of left shoulder and upper arm, initial encounter (principal) ==

== ENCOUNTER → 2021-09-12 | Outpatient (CLI) | payer MEDICARE, BC ==
[~2021-09-12] MED LIST changes: +CALAMINE 180 M180 ML TP; +IMODIUM 2MG CAPS2 MG PO; +REGLAN 10MG10 MG/TAB PO; +TEMODAR140 MG PO; +THORAZINE 550 MG/TAB PO; +ULTRAM 50MG TAB50 MG PO
[2021-09-12 16:56] LABS: CALCIUM 9.3 mg/dL (8.4-10.2); CREATININE, serum 0.76 mg/dL (0.72-1.25); POTASSIUM 4.1 mmol/L (3.5-4.5)
== END ==
LOC: ZLAB.STJ 16:18
PROVIDERS: Family Medicine
DX: C71.1 Malignant neoplasm of frontal lobe (principal)

== ENCOUNTER 2021-10-04 12:40 | Emergency (ER) | payer MEDICARE, BC ==
[~2021-10-04] VITALS: Ht 177.8 cm; Wt 90.9 kg
[~2021-10-04 12:40] MED LIST changes: -CALAMINE 180 M180 ML TP; -IMODIUM 2MG CAPS2 MG PO; -REGLAN 10MG10 MG/TAB PO; -TEMODAR140 MG PO; -THORAZINE 550 MG/TAB PO; -ULTRAM 50MG TAB50 MG PO
[2021-10-04 12:43] VITALS: TEMP 98.1
[2021-10-04 13:04] LABS: EOS # 0.2 K/mm3 (0.0-0.7); EOS % 7.3 % (0.0-4.0); GRAN # 2.3 K/mm3 (1.4-6.5); GRAN % 73.7 % (42.2-75.2); HEMOGLOBIN 11.9 g/dl (13.5-18.0); LYMPH # 0.3 K/mm3 (1.2-3.4); LYMPH % 7.9 % (20.0-51.0); MEAN CELL VOLUME 99 fl (80.0-100.0); MEAN CORPUSCULAR HEMOGLOBIN 34 pg (27-31); MEAN CORPUSCULAR HGB CONC 34 g/dl (33.0-37.0); MEAN PLATELET VOLUME 10.4 fl (7.4-10.4); MONO # 0.3 K/mm3 (0.1-0.6); MONO % 10.8 % (1.7-9.3); PLATELET COUNT 94 K/mm3 (130-400); RED BLOOD COUNT 3.51 M/mm3 (4.20-5.60); REDCELL DISTRIBUTION WIDTH-CV 13.6 % (11.5-14.5)
[2021-10-04 13:06] LABS: HEMATOCRIT 34.6 % (42.0-52.0)
[2021-10-04 13:16] LABS: ALBUMIN 3.1 gm/dL (3.4-4.8); BILIRUBIN,TOTAL 0.7 mg/dL (0.2-1.2); CREATININE, serum 0.74 mg/dL (0.72-1.25); POTASSIUM 3.9 mmol/L (3.5-4.5); TOTAL PROTEIN 6.1 gm/dL (6.2-8.1)
[2021-10-04 13:22] LABS: TROPONIN-I 0.02 ng/mL (0.00-0.033)
[2021-10-04 17:17] VITALS: BP 116/72; PULSE 68
== END 2021-10-04 17:23 | disposition home or self-care (01) ==
LOC: COL.ER 12:40
PROVIDERS: Emergency Medicine
DX: C71.9 Malignant neoplasm of brain, unspecified (principal); R06.6 Hiccough; E66.9 Obesity, unspecified
CPT/HCPCS: J0780; J1200; J1630; Q9967

== ENCOUNTER 2021-10-07 22:49 | Inpatient (IN) | payer MEDICARE, BC ==
[~2021-10-07] VITALS: Wt 78.7 kg
[2021-10-08 02:34] LABS: BASO % 0.2 % (0.0-2.0); EOS # 0.6 K/mm3 (0.0-0.7); EOS % 14.2 % (0.0-4.0); GRAN % 68.9 % (42.2-75.2); HEMOGLOBIN 11.7 g/dl (13.5-18.0); LYMPH # 0.2 K/mm3 (1.2-3.4); LYMPH % 4.6 % (20.0-51.0); MEAN CELL VOLUME 99 fl (80.0-100.0); MEAN CORPUSCULAR HEMOGLOBIN 35 pg (27-31); MEAN CORPUSCULAR HGB CONC 35 g/dl (33.0-37.0); MEAN PLATELET VOLUME 10.8 fl (7.4-10.4); MONO # 0.5 K/mm3 (0.1-0.6); MONO % 11.6 % (1.7-9.3); PLATELET COUNT 77 K/mm3 (130-400); RED BLOOD COUNT 3.37 M/mm3 (4.20-5.60); REDCELL DISTRIBUTION WIDTH-CV 13.8 % (11.5-14.5)
[2021-10-08 02:36] LABS: HEMATOCRIT 33.2 % (42.0-52.0)
[2021-10-08 02:46] LABS: ALBUMIN 3.2 gm/dL (3.4-4.8); BLOOD UREA NITROGEN 5 mg/dL (8-26); CALCIUM 9.1 mg/dL (8.4-10.2); CREATININE, serum 0.72 mg/dL (0.72-1.25); GLUCOSE 130 mg/dL (70-99); PHOSPHOROUS 3.4 mg/dL (2.3-4.7)
[2021-10-08 02:50] LABS: ANION GAP 13 mmol/L (7-16); CARBON DIOXIDE 23 mmol/L (23-31); CHLORIDE 98 mmol/L (98-107); POTASSIUM 4.1 mmol/L (3.5-4.5); SODIUM 134 mmol/L (136-145)
[2021-10-08 02:54] LABS: TROPONIN-I < 0.010 ng/mL (0.00-0.033)
[2021-10-08 04:02] LABS: COLLECTION METHOD CATHETER
[2021-10-08 04:15] LABS: SQUAMOUS EPITHELIAL None Seen /hpf (0-10); URINE BACTERIA None Seen /hpf (NONE SEEN); URINE RBC 0-2 /hpf (0-2)
[2021-10-08 04:16] LABS: PH 5.5 (5.0-8.5); URINE APPEARANCE Hazy (CLEAR/HAZY); URINE COLOR Amber (YELLOW); URINE PROTEIN(semi-quant) TRACE (NEGATIVE)
[2021-10-08 04:17] LABS: URINE BLOOD Negative (NEGATIVE); URINE GLUCOSE Negative (NEGATIVE); URINE KETONE 3+ (NEGATIVE); URINE NITRATE Negative (NEGATIVE)
[2021-10-08 05:58] LABS: ARTERIAL BLD GAS O2 SATURATION 87.8 % (92-100); ARTERIAL BLD GAS TCO2 CT 26.7; ARTERIAL BLOOD GAS BASE EXCESS 1.5 (-2-2); ARTERIAL BLOOD GAS HCO3 25.5 meq/L (22-26); ARTERIAL BLOOD GAS PO2 55.4 mmHg (80-100); ARTERIAL BLOOD GAS pH 7.45 (7.35-7.45)
[2021-10-08] MEDS ORDERED: IMODIUM 2MG CAPS2 MG PO (06:17)
[2021-10-08] MEDS ORDERED: MIRALAX PA17 GM/Dose PO (06:17)
[2021-10-08] MEDS ORDERED: ZOFRAN ODT4 MG PO (06:18)
[2021-10-08] MEDS ORDERED: ULTRAM 50MG TAB50 MG PO (06:19)
[2021-10-08] MEDS ORDERED: CALAMINE 180 M180 ML TP (06:19)
[2021-10-08] MEDS ORDERED: TEMODAR140 MG PO (06:20)
[2021-10-08] MEDS ORDERED: REGLAN 10MG10 MG/TAB PO (06:21)
[2021-10-08] MEDS ORDERED: THORAZINE 550 MG/TAB PO (06:22)
[2021-10-08 06:24] VITALS: BP 100/53; PULSE 115; TEMP 100.7
[2021-10-08 07:33] VITALS: BP 96/57; PULSE 100; TEMP 99.6
[2021-10-08 09:53] LABS: ARTERIAL BLD GAS O2 SATURATION 98.5 % (92-100); ARTERIAL BLD GAS TCO2 CT 26.1; ARTERIAL BLOOD GAS BASE EXCESS 1.5 (-2-2); ARTERIAL BLOOD GAS PCO2 35.5 mmHg (35-45); ARTERIAL BLOOD GAS pH 7.47 (7.35-7.45)
[2021-10-08 11:48] VITALS: BP 104/58; PULSE 83; TEMP 98.8
[2021-10-08 15:57] VITALS: BP 110/59; PULSE 73; TEMP 98.5
[2021-10-08 19:59] VITALS: BP 103/75; PULSE 97; TEMP 97.3
[2021-10-08 23:37] VITALS: BP 128/64; PULSE 85; TEMP 99.1
[2021-10-09 04:02] VITALS: BP 122/65; PULSE 91; TEMP 97.4
[2021-10-09 07:40] VITALS: BP 125/59; PULSE 97; TEMP 98.2
[2021-10-09 09:43] LABS: BASO % 0.2 % (0.0-2.0); EOS # 0.3 K/mm3 (0.0-0.7); GRAN # 3.4 K/mm3 (1.4-6.5); GRAN % 74.1 % (42.2-75.2); HEMOGLOBIN 11.3 g/dl (13.5-18.0); LYMPH # 0.3 K/mm3 (1.2-3.4); LYMPH % 6.2 % (20.0-51.0); MEAN CELL VOLUME 100 fl (80.0-100.0); MEAN CORPUSCULAR HEMOGLOBIN 34 pg (27-31); MEAN CORPUSCULAR HGB CONC 34 g/dl (33.0-37.0); MEAN PLATELET VOLUME 10.7 fl (7.4-10.4); MONO # 0.6 K/mm3 (0.1-0.6); MONO % 13.3 % (1.7-9.3); PLATELET COUNT 76 K/mm3 (130-400); RED BLOOD COUNT 3.31 M/mm3 (4.20-5.60); REDCELL DISTRIBUTION WIDTH-CV 14.2 % (11.5-14.5)
[2021-10-09 09:57] LABS: CALCIUM 8.7 mg/dL (8.4-10.2); CREATININE, serum 0.64 mg/dL (0.72-1.25); POTASSIUM 3.4 mmol/L (3.5-4.5)
[2021-10-09 11:24] VITALS: BP 112/62; PULSE 96; TEMP 98.3
[2021-10-09 15:56] VITALS: BP 143/77; PULSE 86; TEMP 98.2
[2021-10-09 19:51] VITALS: BP 135/75; PULSE 102; TEMP 97.4
[2021-10-09 23:33] VITALS: BP 133/74; PULSE 77; TEMP 98.3
[2021-10-10 05:50] VITALS: BP 137/92; PULSE 96; TEMP 98.2
[2021-10-10 08:19] VITALS: BP 116/57; PULSE 103; TEMP 98.1
[2021-10-10 10:13] LABS: BASO % 0.3 % (0.0-2.0); EOS # 0.3 K/mm3 (0.0-0.7); EOS % 9.4 % (0.0-4.0); GRAN # 2.2 K/mm3 (1.4-6.5); GRAN % 67.6 % (42.2-75.2); HEMOGLOBIN 11.3 g/dl (13.5-18.0); LYMPH # 0.4 K/mm3 (1.2-3.4); LYMPH % 11.8 % (20.0-51.0); MEAN CELL VOLUME 99 fl (80.0-100.0); MEAN CORPUSCULAR HEMOGLOBIN 34 pg (27-31); MEAN CORPUSCULAR HGB CONC 35 g/dl (33.0-37.0); MONO # 0.3 K/mm3 (0.1-0.6); MONO % 10.3 % (1.7-9.3); PLATELET COUNT 76 K/mm3 (130-400); REDCELL DISTRIBUTION WIDTH-CV 14.2 % (11.5-14.5)
[2021-10-10 10:16] LABS: HEMATOCRIT 32.5 % (42.0-52.0)
[2021-10-10 10:24] LABS: CALCIUM 8.4 mg/dL (8.4-10.2); CREATININE, serum 0.66 mg/dL (0.72-1.25); MAGNESIUM 1.8 mg/dL (1.6-2.6)
[2021-10-10 11:43] VITALS: BP 134/68; PULSE 93; TEMP 98.6
[2021-10-10] MEDS ORDERED: ATIVAN 1MG T1 MG/TAB PO (15:26)
[2021-10-10] MEDS ORDERED: DULCOLAX S10 MG/SUPP RC (15:26)
[2021-10-10] MEDS ORDERED: ROXANOL 20MG20 MG/ML SL (15:26)
[2021-10-10] MEDS ORDERED: TRANSDERM-0.5 MG/21 TD (15:26)
[2021-10-10] MEDS ORDERED: SYSTANE 0.4%-0.1 SOL OU (15:26)
[2021-10-10] MEDS ORDERED: IPRATROPIUM BROM3 M1 IH (15:32)
== END 2021-10-10 16:25 | disposition hospice, inpatient (51) | DRG 871 ==
LOC: COL.ER 22:49 → MEDICAL 10-08 04:44
PROVIDERS: Emergency Medicine; Physician Assistant; Student in an Organized Health Care Education/Training Program; ADMIT Internal Medicine
DX: A41.89 Other specified sepsis (principal); J69.0 Pneumonitis due to inhalation of food and vomit; J96.01 Acute respiratory failure with hypoxia; G93.41 Metabolic encephalopathy; D61.818 Other pancytopenia; G81.92 Hemiplegia, unspecified affecting left dominant side; R65.10 Systemic inflammatory response syndrome (SIRS) of non-infectious origin without acute organ dysfunction; I10 Essential (primary) hypertension; E11.9 Type 2 diabetes mellitus without complications; Z66 Do not resuscitate; Z20.822 Contact with and (suspected) exposure to COVID-19; N40.0 Benign prostatic hyperplasia without lower urinary tract symptoms; I44.1 Atrioventricular block, second degree; G31.84 Mild cognitive impairment of uncertain or unknown etiology; G40.909 Epilepsy, unspecified, not intractable, without status epilepticus; G47.33 Obstructive sleep apnea (adult) (pediatric); D69.6 Thrombocytopenia, unspecified; F80.9 Developmental disorder of speech and language, unspecified; D64.9 Anemia, unspecified; B34.8 Other viral infections of unspecified site; Z85.841 Personal history of malignant neoplasm of brain; Z88.8 Allergy status to other drugs, medicaments and biological substances; Z90.49 Acquired absence of other specified parts of digestive tract; Z87.891 Personal history of nicotine dependence
CPT/HCPCS: A4314; J0456; J1644; J1953; J2543; J3370; J7030; J7050; J7120; Q9967